=== PATIENT | female | born 1990 | race Caucasian/White ===

== ENCOUNTER 2018-04-27 11:16 | Emergency (ER) | payer OTHER ==
[2018-04-27 11:25] VITALS: BP 126/66; PULSE 86; TEMP 98.4; BMI 39.9
--- NOTE | 2018-04-27 11:52 | PDOC ---
History of Present Illness - General Chief Complaint: Eye Problem Stated Complaint: SWOLLEN EYES - History of Present Illness Initial Comments: 28-year-old female without comorbidities presents for evaluation of right eye irritation and sneezing without any other associated symptoms times one day. She states her symptoms started last night when she was around a new cat that was brought home. 04/27/18 11:47 Past History - Past Medical History Allergies/Adverse Reactions: Allergies Allergy/AdvReac Type Severity Reaction Status Date / Time No Known Allergies Allergy Verified 04/27/18 11:35 Home Medications: Ambulatory Orders Cetirizine HCl/Pseudoephedrine [Zyrtec-D Tablet] 1 each PO DAILY #30 tab.[id number] 04/27/18 Olopatadine HCl [Pataday] 1 drop OU DAILY #1 bottle 04/27/18 Asthma: Yes Cancer: No Cardiac Disorders: No COPD: No Diabetes: No HTN: No Seizures: No Thyroid Disease: No - Surgical History Abdominal Surgery: Yes - Family Disease History Family Disease History: Diabetes: Grandparents, Mother, Respiratory: Mother - Reproductive History (#): 5 Para: 1 Cervical CA: No Dysfunctional Uterine Bleeding: No Ectopic : No Endometrial CA: No Polycystic Ovaries: No Therapeutic (s) & number: Yes (3) Tubal Ligation: No Spontaneous : 2 - Immunization History Immunization Up to Date: Yes - Suicide/Smoking/Psychosocial Hx Smoking Status: Yes Smoking History: Never smoked Have you smoked in the past 12 months: No Number of Cigarettes Smoked Daily: 20 Information on smoking cessation initiated: No Hx Alcohol Use: No Drug/Substance Use Hx: No Substance Use Type: None Hx Substance Use Treatment: No Review of Systems - Review of Systems HEENTM: Yes: See HPI, Tearing All Other Systems: Reviewed and Negative *Physical Exam - Vital Signs Last Vital Signs Temp Pulse Resp BP Pulse Ox 98.4 F 86 16 126/66 100 04/27/18 11:23 04/27/18 11:23 04/27/18 11:23 04/27/18 11:23 04/27/18 11:23 - Physical Exam Comments: GENERAL: The patient is awake, alert, and fully oriented, in no acute distress. HEAD: Normal with no signs of trauma. EYES: Pupils equal, round and reactive to light, extraocular movements intact, sclera anicteric, the right conjunctiva is injected there is mild swelling around the right eye with normal skin color and temperature and no sensitivity.. ENT: Ears normal, nares injected, oropharynx clear without exudates. Moist mucous membranes. NECK: Normal range of motion, supple without lymphadenopathy, JVD, or masses. LUNGS: Breath sounds equal, clear to auscultation bilaterally. No wheezes, and no crackles. HEART: Regular rate and rhythm, normal S1 and S2 without murmur, rub or gallop. ABDOMEN: Soft, nontender, normoactive bowel sounds. No guarding, no rebound. No masses. EXTREMITIES: Normal range of motion, no edema. No clubbing or cyanosis. No cords, erythema, or tenderness. NEUROLOGICAL: Cranial nerves II through XII grossly intact. Normal speech, normal gait. PSYCH: Normal mood, normal affect. SKIN: Warm, Dry, normal turgor, no rashes or lesions noted. 04/27/18 11:48 Medical Decision Making - Medical Decision Making ALLERGIC reaction treated with the Mast stabilizing eyedrop and a decongestant antihistamine, 04/27/18 11:49 *DC/Admit/Observation/Transfer Diagnosis at time of Disposition: Allergic conjunctivitis, Allergy to animal dander - Discharge Dispostion Disposition: HOME Condition at time of disposition: Stable Decision to Admit order: No - Referrals Referrals: Brett Dumont [Non Staff, Medical] - - Patient Instructions Printed Discharge Instructions: Conjunctivitis, DI for Allergy Testing Additional Instructions: Return to the emergency room should her symptoms worsen or go unresolved. I've given you an antihistamine decongestant combination tablet which should help your nasal symptoms and a eyedrop which should be used once a day. This should help your symptoms as well return to the emergency room should her symptoms worsen or go unresolved otherwise follow-up with her primary care physician within the next 1-2 days for further evaluation and treatment options. I noticed that you don't have a primary care physician listed I've given you a local primary care physician in the area. - Post Discharge Activity
== END 2018-04-27 12:14 | disposition home or self-care (01) ==
LOC: JERFT 11:16
DX: H10.13 Acute atopic conjunctivitis, bilateral (principal); J30.81 Allergic rhinitis due to animal (cat) (dog) hair and dander
CPT/HCPCS: 99281-25

== ENCOUNTER 2019-02-20 09:18 | Emergency (ER) | payer OTHER ==
[2019-02-20 09:43] VITALS: BP 129/53; PULSE 17; TEMP 98.2; BMI 41.5
--- NOTE | 2019-02-20 10:31 | PDOC ---
History of Present Illness - General Chief Complaint: Pain, Acute Stated Complaint: TAIL BONE PAIN Time Seen by Provider: 02/20/19 09:59 History Source: Patient Exam Limitations: No Limitations - History of Present Illness Initial Comments: 02/20/19 10:22 States slipped and fell landing on buttocks on some stairs last week. States bruising has continued and still has pain. Was curious as to possibility of a coccyx fracture. Denies other injuries or problem Occurred: reports: last week Severity: reports: mild, moderate Pain Location: reports: back (buttocks ) Method of Injury: Yes: fall Associated Symptoms (Fall): denies symptoms Past History - Travel Traveled outside of the country in the last 30 days: No Close contact w/someone who was outside of country & ill: No - Past Medical History Allergies/Adverse Reactions: Allergies Allergy/AdvReac Type Severity Reaction Status Date / Time No Known Allergies Allergy Verified 02/20/19 09:40 Home Medications: Ambulatory Orders NK [No Known Home Medication] 02/20/19 Asthma: Yes Cancer: No Cardiac Disorders: No COPD: No Diabetes: No HTN: No Seizures: No Thyroid Disease: No - Surgical History Abdominal Surgery: Yes - Family Disease History Family Disease History: Diabetes: Grandparents, Mother, Respiratory: Mother - Reproductive History (#): 5 Para: 1 Cervical CA: No Dysfunctional Uterine Bleeding: No Ectopic : No Endometrial CA: No Polycystic Ovaries: No Therapeutic (s) & number: Yes (3) Tubal Ligation: No Spontaneous : 2 - Immunization History Immunization Up to Date: Yes - Suicide/Smoking/Psychosocial Hx Smoking Status: Yes Smoking History: Current every day smoker Have you smoked in the past 12 months: No Number of Cigarettes Smoked Daily: 10 Information on smoking cessation initiated: No Hx Alcohol Use: No Drug/Substance Use Hx: No Substance Use Type: None Hx Substance Use Treatment: No Review of Systems - Review of Systems Able to Perform ROS?: Yes Is the patient limited Citizen [place] proficient: Yes Constitutional: Yes: Symptoms Reported, See HPI. No: Malaise HEENTM: Yes: See HPI. No: Symptoms Reported Respiratory: No: Symptoms reported Cardiac (ROS): No: Symptoms Reported Musculoskeletal: Yes: Symptoms Reported, See HPI, Back Pain (low back/buttocks and coccyx pain) All Other Systems: Reviewed and Negative *Physical Exam - Vital Signs Last Vital Signs Temp Pulse Resp BP Pulse Ox 98.2 F 17 L 18 129/53 L 99 02/20/19 09:41 02/20/19 09:41 02/20/19 09:41 02/20/19 09:41 02/20/19 09:41 - Physical Exam General Appearance: Yes: Nourished, Appropriately Dressed. No: Apparent Distress HEENT: positive: CRISTELA, Normal ENT Inspection, TMs Normal, Pharynx Normal Neck: positive: Supple. negative: Tender Musculoskeletal: positive: Normal Inspection, Vertebral Tenderness (mild vertebral tenderness along low spine and sacrum without crepitus or step-offs. Has one bruise noted to the right buttock that's well-healing, no hematoma or other deformity.) Extremity: positive: Normal Inspection, Normal Range of Motion Integumentary: positive: Normal Color, Dry, Warm Neurologic: positive: sales account leader II-XII NML intact, Fully Oriented, Alert, Normal Mood/ Affect, Normal Response, Motor Strength 5/5 Progress Note - Progress Note Progress Note: Contusion status post fall, no evidence of significant bony injury therefore x- rays withheld. Patient will continue ice and anti-inflammatories *DC/Admit/Observation/Transfer Diagnosis at time of Disposition: Contusion Qualifiers: Encounter type: initial encounter Contusion area: lower back Qualified Code(s) : S30.0XXA - Contusion of lower back and pelvis, initial encounter - Discharge Dispostion Disposition: HOME Condition at time of disposition: Stable Decision to Admit order: No - Referrals - Patient Instructions Printed Discharge Instructions: DI for Contusion Additional Instructions: Rest, ice to area on and off for 15 minutes 4-6 times a day Avoid heavy lifting or exercise until pain and swelling is resolved or until further directed Keep area highly elevated to reduce swelling May use small inflatable pillow to sit on until pain resolves Followup with orthopedist in one to 2 days if not improving, if significantly improved may wait one week for followup with orthopedist May use ibuprofen every 6 hours as needed for pain - Post Discharge Activity Forms/Work/School Notes: Back to Work
== END 2019-02-20 10:27 | disposition home or self-care (01) ==
LOC: JERFT 09:18
DX: S30.0XXA Contusion of lower back and pelvis, initial encounter (principal); W10.8XXA Fall (on) (from) other stairs and steps, initial encounter; Y93.89 Activity, other specified; Y92.89 Other specified places as the place of occurrence of the external cause; Y99.8 Other external cause status
CPT/HCPCS: 99281-25

== ENCOUNTER 2019-03-20 17:04 | Emergency (ER) | payer OTHER ==
[2019-03-20] MEDS ORDERED: ACETAMINOPHEN 500 MG TABLET (FP) PO ONE (18:07)
--- NOTE | 2019-03-20 18:07 | PDOC ---
Rapid Medical Evaluation Chief Complaint: Pain, Acute Time Seen by Provider: 03/20/19 18:04 Medical Evaluation: Allergies Allergy/AdvReac Type Severity Reaction Status Date / Time No Known Allergies Allergy Verified 03/20/19 18:04 03/20/19 18:04 I have performed a brief in-person evaluation of this patient. The patient presents with a chief complaint of: mirena IUD in place with complains left pelvic pain for 2 weeks and feeling of tactile fever today. Patient report had apt with NEWS DIRECTOR a week ago but missed her Appt. Patient report taking motrin for pain w/o improvement. Patient report taking 1 OTC aleve 4 hrs ago Pertinent physical exam findings: A&O x 3 I have ordered the following: UA, UCx, pelvic U/S. Uhcg, GC/CT, Tylenol 1g PO The patient will proceed to the ED for further evaluation. Discharge Disposition - Diagnosis Pelvic pain - Discharge Dispostion Condition at time of disposition: Stable - Referrals - Patient Instructions - Post Discharge Activity
[2019-03-20] MEDS ORDERED: ACETAMINOPHEN 500 MG TABLET (FP) ONE (18:08)
[2019-03-20 18:12] VITALS: BP 125/69; PULSE 83; TEMP 99.1; BMI 39.9
--- NOTE | 2019-03-20 19:11 | PDOC ---
History of Present Illness - General Chief Complaint: Pain, Acute Stated Complaint: PAIN Time Seen by Provider: 03/20/19 18:04 - History of Present Illness Initial Comments: 03/20/19 19:25 The patient is a 28 year old female with a PMH of morbid obesity presents with a two week history of pelvic pain. Initially pain was intermittent however the pain has been constant since yesterday following sexual intercourse. Denies dysparuenia, dysuria, hematuria. Subjective fevers today. Subjective fevers today. NSAID x2 without any relief. Vaginal spotting last week. Mirena in place. Sexually active with one partner, does not use condoms. Unsure of last STI testing or partner's STI history. NKDA Past History - Past Medical History Allergies/Adverse Reactions: Allergies Allergy/AdvReac Type Severity Reaction Status Date / Time No Known Allergies Allergy Verified 03/20/19 18:04 Home Medications: Ambulatory Orders Sulfamethoxazole/Trimethoprim [Bactrim Ds Tablet] 1 each PO BID 10 Days #20 tablet 03/20/19 Asthma: Yes Cancer: No Cardiac Disorders: No COPD: No Diabetes: No HTN: No Seizures: No Thyroid Disease: No - Surgical History Abdominal Surgery: Yes (iud) - Family Disease History Family Disease History: Diabetes: Grandparents, Mother, Respiratory: Mother - Reproductive History (#): 5 Para: 1 Cervical CA: No Dysfunctional Uterine Bleeding: No Ectopic : No Endometrial CA: No Polycystic Ovaries: No Therapeutic (s) & number: Yes (3) Tubal Ligation: No Spontaneous : 2 - Immunization History Immunization Up to Date: Yes - Suicide/Smoking/Psychosocial Hx Smoking Status: Yes Smoking History: Unknown if ever smoked Have you smoked in the past 12 months: No Number of Cigarettes Smoked Daily: 10 Hx Alcohol Use: No Drug/Substance Use Hx: No Substance Use Type: None Hx Substance Use Treatment: No Review of Systems - Review of Systems Constitutional: Yes: Fever. No: Chills HEENTM: No: Recent change in vision, Throat Pain Respiratory: No: Cough, Shortness of Breath Cardiac (ROS): No: Chest Pain, Lightheadedness, Palpitations, Syncope ABD/GI: Yes: Abdominal cramping. No: Constipated, Diarrhea : No: Burning, Dysuria *Physical Exam - Vital Signs Last Vital Signs Temp Pulse Resp BP Pulse Ox 99.1 F 83 20 125/69 98 03/20/19 18:11 03/20/19 18:11 03/20/19 18:11 03/20/19 18:11 03/20/19 18:11 - Physical Exam General Appearance: Yes: Nourished, Obese HEENT: positive: Normal Voice, Hearing Grossly Normal Neck: positive: Trachea midline, Supple Female Pelvic Exam: positive: other (cervical os closed, visible IUD string, yellowish discharge; CMT on bimanual exam) Gastrointestinal/Abdominal: positive: Normal Bowel Sounds, Soft, Other (RUQ, RLQ , Suprapubic TTP; Suprapubic > RLQ, RUQ) Musculoskeletal: negative: CVA Tenderness (R), CVA Tenderness (L) Extremity: positive: Normal Capillary Refill, Normal Inspection Integumentary: positive: Normal Color, Dry, Warm Neurologic: positive: Fully Oriented, Alert ED Treatment Course - LABORATORY CBC & Chemistry Diagram: 03/20/19 19:33 03/20/19 19:33 - Medications Given in the ED: ED Medications Discontinued Medications Generic Name Dose Route Start Last Admin Trade Name Sienna PRN Reason Stop Dose Admin Acetaminophen 1,000 mg 03/20/19 18:07 03/20/19 18:10 Tylenol - PO 03/20/19 18:08 1,000 mg ONCE ONE Administration Medical Decision Making - Medical Decision Making 03/20/19 19:26 Cely Doty is a 28 year old female with a two week h/o initially intermittent now constant L sided abdominal pain. VS unremarkable. Belly exam shows Suprapubic > LLQ, LUQ TTP. Frontal diagnosis: ovarian torsion, ruptured cyst, tubo/ovarian abscess, PID, UTI, Ectopic , also consider nephrolithiasis though less likely. - Will obtain TVUS (r/o torsion, ruptured cyst) in addition to UA/UCx, G/C. Basic labs and IV hydration. Tylenol for pain control. Reassess. 03/20/19 19:45 CMT on bimanual exam, pelvic exam with copious yellowish discharge. Will prophylatically treat for G/C 03/20/19 20:47 UA shows 2+ blood, 2+ leukocyte esterase, 514 WBC S/p Tylenol, continues to c/o pain; Morphine (4 mg); patient to U/S 03/20/19 21:38 Leukocytosis 22.4 - likely etiology is UTI Patient @ U/S 03/20/19 21:54 TVUS shows L sided ruptured hemorrhagic cyst 03/20/19 21:56 As patient is hemodynamically stable (VSS + no concern for anemia from bleed) and afebrile will send home with symptomatic care for hemorragic cyst + outpatient cystitis treatment (s/p additional 1 gram Ceftriaxone in addition to G/C prophylatic treatment). 03/20/19 22:06 Patient and patient's sister at bedside counseled on importance of completion of entire antibiotic course and follow-up with OB-Parachute Supervisor. Patient states she sees an OB-Parachute Supervisor at [facility] and will call tomorrow for an appointment. Patient discharged home with Bactrim prescription, a copy of her ultrasound report to take to OB-Parachute Supervisor and return precautions. I explained the final diagnosis and follow-up care to the patient and her sister @ bedside. The patient and her sister affirmed their understanding of the patient's post discharge care plan. The patient was satisfied with the care received and will follow up with her youth advocate in the next 48 hours. Patient understand she should return to the Emergency Department immediately for any new /worsening/concerning symptoms. *DC/Admit/Observation/Transfer Diagnosis at time of Disposition: Pelvic pain, UTI (urinary tract infection), Hemorrhagic cyst of left ovary - Discharge Dispostion Disposition: HOME Condition at time of disposition: Good Decision to Admit order: No - Prescriptions Prescriptions: Sulfamethoxazole/Trimethoprim [Bactrim Ds Tablet] 1 each PO BID 10 Days #20 tablet - Referrals Referrals: Ricardo Stephens [Primary Care Provider] - - Patient Instructions Additional Instructions: You were evaluated today for your pelvic and abdominal pain. At this time you are safe for discharge home with the following treatment plan: A test of your urine showed a urinary tract infection. We are sending an antibiotic to your pharmacy. Please take the entire prescribed course. An ultrasound of your ovaries showed a hemmoragic cyst. This is also a possible cause of your pain. At this time you are safe for discharge home. You can take Tylenol (up to 4000 mg daily) alternating with Motrin (up to 3200 mg daily) for your pain. We have prophylatically treated you for Gonorrhea and Chlamydia as is the standard of care, however you can call the number provided in your discharge instructions in 3 days for the results. Follow up with your OB-Parachute Supervisor in the next 2 days. Please take a copy of your ultrasound report. Your care is not complete until you are evaluated by your OB -Parachute Supervisor. - Post Discharge Activity Forms/Work/School Notes: Back to Work
[2019-03-20] MEDS ORDERED: morphine CARPU-JECT 4 MG/1 ML DISP.SYRIN IVPUSH ONE (19:27)
[2019-03-20] MEDS ORDERED: SODIUM CHLORIDE 0.9% 500 ML INFUS.BAG IV ONE (19:27)
[2019-03-20] MEDS ORDERED: LIDOCAINE HCL 1%, 10 MG/ML (20ML VIAL) ONE (19:47)
[2019-03-20] MEDS ORDERED: morphine SULFATE 4 MG/ML VIAL ONE (19:47)
[2019-03-20] MEDS ORDERED: cefTRIAXone SODIUM 1 GM VIAL ONE (19:48)
[2019-03-20] MEDS ORDERED: AZITHROMYCIN 250 MG TABLET ONE (19:48)
[2019-03-20 19:56] LABS: BASO % 0.8 % (0-2.0); EOS % 1.1 % (0-4.5); HEMATOCRIT 37.2 % (32.4-45.2); HEMOGLOBIN 12.1 GM/dL (10.7-15.3); LYMPH % 12.7 % (8-40); MCH 27.7 pg (25.7-33.7); MCHC 32.6 g/dl (32.0-36.0); MEAN PLT VOLUME 6.8 fl (7.5-11.1); MONO % 4.9 % (3.8-10.2); NEUT % 80.5 % (42.8-82.8); PLATELET COUNT 406 K/MM3 (134-434); RBC 4.38 M/mm3 (3.60-5.2); RDW 12.9 % (11.6-15.6); WHITE BLOOD COUNT 22.4 K/mm3 (4.0-10.0)
[2019-03-20 19:56] LABS: EPI CELLS 18.9 /HPF (0-5/HPF); PH,URINE 5.5 (5.0-8.0); URINE APPEARANCE TURBID; URINE BACTERIA 2131.7 /hpf (NEGATIVE); URINE BILIRUBIN 1+ (NEGATIVE); URINE CASTS 16 /lpf (0-8); URINE COLOR DK YELLOW; URINE GLUCOSE (UA) NEGATIVE (NEGATIVE); URINE KETONE TRACE (NEGATIVE); URINE LEUK ESTERASE 2+ (NEGATIVE); URINE NITRITE NEGATIVE (NEGATIVE); URINE PROTEIN 1+ (NEGATIVE); URINE RBC 11 /hpf (0-4); URINE WBC 514 /hpf (0-5)
[2019-03-20] MEDS ORDERED: AZITHROMYCIN IVPB 1,000 MG in DEXTROSE 5%-WATER - 250 ML IVPB ONE (20:02)
[2019-03-20] MEDS ORDERED: AZITHROMYCIN 500 MG TABLET PO ONE (20:05)
[2019-03-20 20:30] LABS: ALBUMIN 3.3 g/dl (3.4-5.0); BILIRUBIN,TOTAL 0.5 mg/dL (0.2-1); CALCIUM 8.5 mg/dL (8.5-10.1); CREATININE 0.7 mg/dL (0.55-1.3); POTASSIUM 3.9 mmol/L (3.5-5.1); TOT PROT 7.3 g/dl (6.4-8.2)
[2019-03-20] MEDS ORDERED: CEFTRIAXONE 1 GM/50 ML BAG ONE (21:59)
[2019-03-20] MEDS ORDERED: ONDANSETRON 4 MG/2 ML VIAL ONE (22:45)
[2019-03-20] MEDS ORDERED: ONDANSETRON 4 MG/2 ML VIAL IVPUSH ONE (22:54)
== END 2019-03-20 22:53 | disposition home or self-care (01) ==
LOC: JER 17:04
PROC: 3E02329 Introduction of Other Anti-infective into Muscle, Percutaneous Approach (ICD-10-PCS; principal; 2019-03-20)
PROC: 3E03329 Introduction of Other Anti-infective into Peripheral Vein, Percutaneous Approach (ICD-10-PCS; 2019-03-20)
PROC: 3E033NZ Introduction of Analgesics, Hypnotics, Sedatives into Peripheral Vein, Percutaneous Approach (ICD-10-PCS; 2019-03-20)
DX: N39.0 Urinary tract infection, site not specified (principal); N83.202 Unspecified ovarian cyst, left side; R10.2 Pelvic and perineal pain
CPT/HCPCS: 36415; 76830-TC; 80053; 81003; 84703; 85025; 87086; 87491; 87591; 96372; 96374; 96375; 99283-25

== ENCOUNTER 2020-11-30 09:18 | Emergency (ER) | payer OTHER ==
[2020-11-30] MEDS ORDERED: DEXAMETHASONE LIQUID 0.5 MG/5 ML PO ONE (09:38)
[2020-11-30] MEDS ORDERED: DEXAMETHASONE SOD PHOSPHATE 10 MG/1 ML VIAL ONE (09:46)
[2020-11-30 09:49] VITALS: BP 138/84; PULSE 104; TEMP 98.1; BMI 41.0
== END 2020-11-30 10:08 | disposition home or self-care (01) ==
LOC: JER 09:18
DX: J03.90 Acute tonsillitis, unspecified (principal); J02.9 Acute pharyngitis, unspecified
CPT/HCPCS: 87880; 99284-25; C9803; U0003

== ENCOUNTER 2021-08-12 08:50 | Emergency (ER) | payer OTHER ==
[2021-08-12 08:59] VITALS: BP 121/79; PULSE 76; TEMP 98; BMI 42.0
== END 2021-08-12 10:00 | disposition home or self-care (01) ==
LOC: JER 08:50 → JERFT 08:50
DX: S02.2XXA Fracture of nasal bones, initial encounter for closed fracture (principal); H02.849 Edema of unspecified eye, unspecified eyelid; Y04.0XXA Assault by unarmed brawl or fight, initial encounter; Y92.9 Unspecified place or not applicable
CPT/HCPCS: 99283-25

== ENCOUNTER 2022-08-31 09:42 | Emergency (ER) | payer OTHER ==
[2022-08-31 10:46] VITALS: BP 127/74; PULSE 91; RESP 18; TEMP 97.9; BMI 39.4
== END 2022-08-31 12:47 | disposition home or self-care (01) ==
LOC: JER 09:42
DX: J02.9 Acute pharyngitis, unspecified (principal)
CPT/HCPCS: 87651; 99283-25

== ENCOUNTER 2023-06-28 00:54 | Emergency (ER) | payer OTHER ==
[2023-06-28 01:00] VITALS: BMI 34.3
[2023-06-28] MEDS ORDERED: ONDANSETRON 4 MG/2 ML VIAL IVPUSH ONE (02:45)
[2023-06-28] MEDS ORDERED: SODIUM CHLORIDE 1,000 ML IV STA (02:45)
[2023-06-28] MEDS ORDERED: ACETAMINOPHEN 1000 MG/100 ML BAG IVPB ONE (02:45)
[2023-06-28] MEDS ORDERED: ONDANSETRON 4 MG/2 ML VIAL ONE (02:56)
[2023-06-28] MEDS ORDERED: ACETAMINOPHEN INJECTION 100 ML IVPB ONE (02:56)
[2023-06-28 03:31] LABS: INR 1.14 (0.83-1.09); PROTHROMBIN TIME (PATIENT) 13.2 SEC (9.7-13.0)
[2023-06-28 03:33] LABS: HEMATOCRIT 40.7 % (32.4-45.2); HEMOGLOBIN 13.8 GM/dL (10.7-15.3); MCH 29.1 pg (25.7-33.7); MCHC 33.9 g/dl (32.0-36.0); MEAN CELL VOLUME 86.1 fl (80-96); MEAN PLT VOLUME 6.9 fl (7.5-11.1); PLATELET COUNT 373 10^3/uL (134-434); POTASSIUM 4.3 mmol/L (3.5-5.1); RBC 4.72 M/mm3 (3.60-5.2); RDW 13.2 % (11.6-15.6); WHITE BLOOD COUNT 18.1 K/mm3 (4.0-10.0)
[2023-06-28 03:34] LABS: ACTIVATED PTT 32.3 SECONDS (25.2-36.5); CALCIUM 9.1 mg/dL (8.5-10.1)
[2023-06-28 03:35] LABS: ALBUMIN 3.6 g/dl (3.4-5.0); BLOOD UREA NITROGEN 15.3 mg/dL (7-18); MAGNESIUM 1.8 mg/dL (1.8-2.4)
[2023-06-28 03:38] LABS: CREATININE 0.7 mg/dL (0.55-1.3)
[2023-06-28 03:40] LABS: BILIRUBIN,TOTAL 0.6 mg/dL (0.2-1); TOT PROT 7.7 g/dl (6.4-8.2)
[2023-06-28 04:57] LABS: EPI CELLS 27 /uL (0-25.1); HYALINE CASTS 1 /uL (0-3.1); URINE APPEARANCE CLEAR; URINE BACTERIA 127 /uL (0-1359); URINE BILIRUBIN NEGATIVE (NEGATIVE); URINE COLOR ORANGE; URINE GLUCOSE (UA) NEGATIVE (NEGATIVE); URINE KETONE 3+ (NEGATIVE); URINE LEUK ESTERASE TRACE (NEGATIVE); URINE NITRITE NEGATIVE (NEGATIVE); URINE PROTEIN 1+ (NEGATIVE); URINE RBC 2621 /uL (0-23.9); URINE WBC 21 /uL (0-25.8)
[2023-06-28 05:55] VITALS: PULSE 75; RESP 14
[2023-06-28 06:00] VITALS: BP 154/86; TEMP 98.6
[2023-06-28] MEDS ORDERED: METOCLOPRAMIDE HCL INJECTION 10 MG/2 ML VIAL IVPUSH ONE (06:17)
[2023-06-28] MEDS ORDERED: METOCLOPRAMIDE HCL INJECTION 10 MG/2 ML VIAL ONE (06:25)
[2023-06-28 06:47] LABS: ANISOCYTOSIS 1+; MACROCYTOSIS 0; OVALOCYTE 2+; TOXIC GRANULATION 2+
[2023-06-28] MEDS ORDERED: CEFTRIAXONE 1 GM/50 ML BAG ONE (10:33)
[2023-06-28] MEDS ORDERED: ACETAMINOPHEN 500 MG TABLET (FP) PO ONE (11:02)
[2023-06-28] MEDS ORDERED: ACETAMINOPHEN 325 MG TABLET (FP) ONE (11:05)
== END 2023-06-28 12:04 | disposition home or self-care (01) ==
LOC: JER 00:54
PROC: 3E033NZ Introduction of Analgesics, Hypnotics, Sedatives into Peripheral Vein, Percutaneous Approach (ICD-10-PCS; principal; 2023-06-28)
PROC: 3E03329 Introduction of Other Anti-infective into Peripheral Vein, Percutaneous Approach (ICD-10-PCS; 2023-06-28)
PROC: 3E033GC Introduction of Other Therapeutic Substance into Peripheral Vein, Percutaneous Approach (ICD-10-PCS; 2023-06-28)
PROC: 3E033GC Introduction of Other Therapeutic Substance into Peripheral Vein, Percutaneous Approach (ICD-10-PCS; 2023-06-28)
PROC: 3E0337Z Introduction of Electrolytic and Water Balance Substance into Peripheral Vein, Percutaneous Approach (ICD-10-PCS; 2023-06-28)
DX: R10.30 Lower abdominal pain, unspecified (principal); R11.2 Nausea with vomiting, unspecified; N83.201 Unspecified ovarian cyst, right side; R91.1 Solitary pulmonary nodule
CPT/HCPCS: 36415; 74177-TC; 76830-TC; 80053; 81003; 83690; 83735; 84703; 85025; 85610; 85730; 86850; 86900; 86901; 87077; 87086; 87491; 87591; 87661; 99285-25; Q9967

== ENCOUNTER 2023-12-27 07:09 | Emergency (ER) | payer OTHER ==
[2023-12-27 07:27] VITALS: BP 125/75; PULSE 74; RESP 16; TEMP 98; BMI 43.2
[2023-12-27] MEDS ORDERED: ACETAMINOPHEN 325 MG TABLET (FP) ONE (08:23)
[2023-12-27] MEDS: ACETAMINOPHEN 325 MG TABLET (FP) PO ONE (08:41)
[2023-12-27 08:56] LABS: PH,URINE 5.5 (5.0-8.0); URINE APPEARANCE CLEAR; URINE BILIRUBIN NEGATIVE (NEGATIVE); URINE COLOR YELLOW; URINE GLUCOSE (UA) NEGATIVE (NEGATIVE); URINE KETONE NEGATIVE (NEGATIVE); URINE LEUK ESTERASE NEGATIVE (NEGATIVE); URINE NITRITE NEGATIVE (NEGATIVE); URINE PROTEIN NEGATIVE (NEGATIVE); URINE UROBILINOGEN 0.2 mg/dL (0.2-1.0)
[2023-12-27 09:01] LABS: BASO % 0.3 % (0-2.0); EOS % 0.8 % (0-4.5); HEMATOCRIT 34.8 % (32.4-45.2); HEMOGLOBIN 11.5 GM/dL (10.7-15.3); LYMPH % 19.8 % (8-40); MCHC 32.9 g/dl (32.0-36.0); MEAN CELL VOLUME 84.9 fl (80-96); MEAN PLT VOLUME 6.8 fl (7.5-11.1); MONO % 7.2 % (3.8-10.2); NEUT % 71.9 % (42.8-82.8); PLATELET COUNT 373 10^3/uL (134-434); RDW 13.1 % (11.6-15.6); WHITE BLOOD COUNT 11.6 K/mm3 (4.0-10.0)
[2023-12-27 09:14] LABS: POTASSIUM 4.3 mmol/L (3.5-5.1)
[2023-12-27 09:16] LABS: CALCIUM 8.9 mg/dL (8.5-10.1)
[2023-12-27 09:17] LABS: ALBUMIN 3.1 g/dl (3.4-5.0); BLOOD UREA NITROGEN 12.7 mg/dL (7-18)
[2023-12-27 09:19] LABS: CREATININE 0.6 mg/dL (0.55-1.3)
[2023-12-27 09:22] LABS: BILIRUBIN,TOTAL 0.5 mg/dL (0.2-1); TOT PROT 6.8 g/dl (6.4-8.2)
== END 2023-12-27 16:31 | disposition home or self-care (01) ==
LOC: JER 07:09
DX: O26.891 Other specified pregnancy related conditions, first trimester (principal); R10.32 Left lower quadrant pain; O21.9 Vomiting of pregnancy, unspecified; Z3A.01 Less than 8 weeks gestation of pregnancy
CPT/HCPCS: 36415; 74018-TC-FY; 76830-TC; 80053; 81003; 84702; 85025; 86850; 86900; 86901; 87086; 99285-25